=== PATIENT | female | born 1970 | race Caucasian/White ===

== ENCOUNTER → 2021-04-24 15:31 | Outpatient (CLI) | payer MEDICAID, SELFPAY ==
[2021-04-24 18:20] LABS: Basophils # 0.1 K/mm3 (0-0.2); Basophils % 1.4 % (0.1-2.0); Eosinophils # 0.1 K/mm3 (0.0-0.4); Eosinophils % 0.9 % (0.1-12.0); Hematocrit 44.8 % (37.0-47.0); Hemoglobin 14.8 g/dL (12.2-16.2); Lymphocytes # 2.9 K/mm3 (0.7-4.5); Lymphocytes % 30.9 % (10-50); Mean Corpuscular HGB Conc 32.9 g/dL (31.8-35.4); Mean Corpuscular Hemoglobin 27.6 pg (27.0-31.2); Mean Corpuscular Volume 83.7 fl (81-99); Mean Platelet Volume 9.4 fl (7.4-10.4); Monocytes # 0.3 K/mm3 (0.1-1.0); Monocytes % 3.3 % (1.7-9.3); Neutrophils # 5.9 K/mm3 (1.8-7.8); Neutrophils % 63.5 % (37.0-80.0); Platelet Count 270 K/mm3 (142-424); Red Blood Count 5.36 M/mm3 (4.20-5.40); Red Cell Distribution Width 16.4 % (11.5-17.5); White Blood Count 9.3 K/mm3 (4.8-10.8)
[2021-04-24 18:57] LABS: Alanine Aminotransferase 21 U/L (12-78); Albumin Level 4.7 g/dl (3.5-5.0); Albumin/Globulin Ratio 1.5 (1.1-1.8); Alkaline Phosphatase 148 U/L (38-126); Anion Gap 15.2 mEq/L (5-15); Aspartate Amino Transferase 25 U/L (14-36); Bilirubin,Total 0.4 mg/dl (0.2-1.3); Blood Urea Nitrogen 15 mg/dl (7-17); Calcium 9.4 mg/dl (8.4-10.2); Carbon Dioxide 25 mmol/L (22.0-30.0); Chloride 101 mmol/L (98-107); Chol/HDL Ratio 6.5 (1-3.5); Cholesterol 258 mg/dl (140-200); Estimated Glomerular Filt Rate 89 ml/min (>60); GFR (African American) 108 ML/MIN (>60); Globulin 3.1 g/dL (1.3-3.2); Glucose 94 mg/dl (74-100); HDL Cholesterol 40 mg/dl (40-60); Potassium 4.2 mmoL/L (3.5-5.1); Sodium 137 mmol/L (136-145); Total Protein,Serum 7.8 g/dl (6.3-8.2); Triglycerides 359 mg/dl (30-150); VLDL Cholesterol 72 mg/dL (0-40)
[2021-04-24 19:08] LABS: Direct LDL Cholesterol 140.99 mg/dL (100-129)
[2021-04-24 19:13] LABS: Free T4 (Free Thyroxine) 0.84 ng/dl (0.78-2.19)
[2021-04-26 08:15] LABS: HIV Screen 4th Generation wRfx Non Reactive (Non Reactive); Hep A Ab, IgM Negative (Negative); Hep A Ab, Total Negative (Negative); Hep B Core Ab, Total Negative (Negative); Hep B Surface Ab, Qual Non Reactive (.); Hepatitis B Surface Antigen Negative (Negative); Hepatitis C Antibody <0.1 s/co ratio (0.0-0.9)
[2021-05-01 00:10] LABS: ALT (SGPT) P5P 16 IU/L (0-40); Alpha 2-Macroglobulins, Qn 191 mg/dL (110-276); Apolipoprotein A-1 127 mg/dL (116-209); Bilirubin, Total <0.1 mg/dL (0.0-1.2); Fibrosis Score 0.05 (0.00-0.21); GGT 35 IU/L (0-60); Haptoglobin 245 mg/dL (42-296); Necroinflammat Activity Grade A0-No activity (.); Necroinflammat Activity Score 0.04 (0.00-0.17)
== END ==
PROVIDERS: Visit Provider Emergency Medicine
DX: I10 Essential (primary) hypertension (principal); K21.9 Gastro-esophageal reflux disease without esophagitis; E55.9 Vitamin D deficiency, unspecified; F41.9 Anxiety disorder, unspecified; F32.A Depression, unspecified; E66.9 Obesity, unspecified; Z68.33 Body mass index [BMI] 33.0-33.9, adult; Z11.4 Encounter for screening for human immunodeficiency virus [HIV]; R94.5 Abnormal results of liver function studies
CPT/HCPCS: 80053; 80061; 81596; 82306; 84439; 84443; 85025; 86703; 86704; 86706; 86708; 87340; 87380; 87522; G0432

== ENCOUNTER → 2021-05-29 09:31 | Outpatient (CLI) | payer MEDICAID, SELFPAY | PROVIDERS: PCP Emergency Medicine; Visit Provider Nurse Practitioner Family | DX: M25.562 Pain in left knee (principal) ==

== ENCOUNTER → 2021-06-06 10:30 | Outpatient (CLI) | payer MEDICAID, SELFPAY ==
--- NOTE | 2021-06-06 10:33 | XR_ITS ---
FINAL REPORT CLINICAL HISTORY: knee pain, knot on lateral side of knee FINDINGS: LEFT KNEE Four views were obtained. There is no acute fracture or dislocation. There is mild narrowing of the medial compartment joint space. The bones are well mineralized. There is soft tissue prominence anterior to the patella. IMPRESSION: No acute process. Reviewed, Interpreted and Dictated by Charlie Tolbert MD Transcribed by Kerrie Skaggs Authenticated by Charlie Tolbert MD on 06/06/2021 12:02:02 PM [facility]
== END ==
PROVIDERS: PCP Emergency Medicine; Visit Provider Orthopaedic Surgery
DX: M25.562 Pain in left knee (principal)
CPT/HCPCS: 73564

== ENCOUNTER → 2021-11-11 16:00 | Outpatient (CLI) | payer MEDICAID, SELFPAY ==
[2021-11-11 16:17] LABS: Basophils # 0.2 K/mm3 (0-0.2); Basophils % 1.6 % (0.1-2.0); Eosinophils # 0.3 K/mm3 (0.0-0.4); Eosinophils % 2.6 % (0.1-12.0); Hemoglobin 15.1 g/dL (12.2-16.2); Lymphocytes # 4.3 K/mm3 (0.7-4.5); Lymphocytes % 38.1 % (10-50); Mean Corpuscular HGB Conc 32.7 g/dL (31.8-35.4); Mean Corpuscular Hemoglobin 28.6 pg (27.0-31.2); Mean Corpuscular Volume 87.3 fl (81-99); Monocytes # 0.5 K/mm3 (0.1-1.0); Monocytes % 4.4 % (1.7-9.3); Neutrophils % 53.4 % (37.0-80.0); Platelet Count 259 K/mm3 (142-424); Red Blood Count 5.27 M/mm3 (4.20-5.40); White Blood Count 11.3 K/mm3 (4.8-10.8)
[2021-11-11 16:55] LABS: Chloride 103 mmol/L (98-107); Potassium 4.3 mmoL/L (3.5-5.1); Sodium 142 mmol/L (136-145)
[2021-11-11 17:03] LABS: Free T4 (Free Thyroxine) 1.01 ng/dl (0.78-2.19)
[2021-11-11 17:16] LABS: Thyroid Stimulating Hormone 2.53 uIU/mL (0.465-4.68)
[2021-11-11 17:38] LABS: Alanine Aminotransferase 26 U/L (12-78); Albumin Level 4.8 g/dl (3.5-5.0); Albumin/Globulin Ratio 1.5 (1.1-1.8); Alkaline Phosphatase 142 U/L (38-126); Anion Gap 18.3 mEq/L (5-15); Aspartate Amino Transferase 36 U/L (14-36); Blood Urea Nitrogen 17 mg/dl (7-17); Carbon Dioxide 25 mmol/L (22.0-30.0); Estimated Glomerular Filt Rate 89 ml/min (>60); GFR (African American) 107 ML/MIN (>60); Globulin 3.1 g/dL (1.3-3.2); Total Protein,Serum 7.9 g/dl (6.3-8.2)
[2021-11-11 17:39] LABS: Calcium 9.6 mg/dl (8.4-10.2); Glucose 97 mg/dl (74-100)
[2021-11-11 17:41] LABS: Bilirubin,Total 0.1 mg/dl (0.2-1.3)
== END ==
PROVIDERS: PCP Emergency Medicine; Visit Provider Emergency Medicine
DX: E66.9 Obesity, unspecified (principal); Z79.899 Other long term (current) drug therapy
CPT/HCPCS: 80053; 84439; 84443; 85025

== ENCOUNTER → 2021-11-20 10:56 | Outpatient (CLI) | payer MEDICAID, SELFPAY ==
--- NOTE | 2021-11-20 10:57 | CA_ITS ---
FINAL REPORT TECHNIQUE: Grayscale, color Doppler and duplex Doppler ultrasound of the kidneys, aorta and renal arteries was performed. Multiple velocities were measured. CLINICAL HISTORY: HTN,SMOKER FINDINGS: Aorta velocity: 121.1 cm/sec Right kidney: 9.1 cm. No evidence of hydronephrosis or mass. Right intrarenal RI: 0.56 Right renal artery velocity: 277 cm/sec. Right RAR (Renal artery-Aortic Ratio): 2.3 Left Kidney: 9.8 cm. No evidence of hydronephrosis or mass. Left intrarenal RI: 0.50 Left renal artery velocity: 283 cm/sec. Left RAR (Renal Artery-Aortic Ratio): 2.3 Incidental note is made of gallstones within the gallbladder. IMPRESSION: Less than 60% bilateral renal artery stenosis. Recommend CTA or catheter angiogram for further evaluation. Reviewed, Interpreted and Dictated by Elijah Schneider III, MD Transcribed by Whitney Paniagua Authenticated and [facility]
== END ==
PROVIDERS: PCP Emergency Medicine; Visit Provider Emergency Medicine
DX: I10 Essential (primary) hypertension (principal)
CPT/HCPCS: 93976

== ENCOUNTER → 2022-08-11 23:36 | Outpatient (CLI) | payer MEDICAID, SELFPAY ==
[2022-08-11 19:04] LABS: Barbiturates Screen,Urine Negative ng/ml (<200)
[2022-08-11 19:05] LABS: Benzodiazepines Screen,Urine Negative ng/ml (<200)
[2022-08-11 19:06] LABS: Cannabinoid Screen,Urine Negative ng/ml (<50)
[2022-08-11 19:07] LABS: Cocaine Screen,Urine Negative ng/ml (<300); Methadone Screen,Urine Negative ng/ml (<300)
[2022-08-11 19:08] LABS: Opiate Screen,Urine Positive ng/ml (<300)
[2022-08-11 19:09] LABS: Phencyclidine Screen,Urine Negative ng/ml (<25)
[2022-08-11 19:35] LABS: Amphetamine/Metha Screen,Urine Positive ng/ml (<1000)
== END ==
PROVIDERS: PCP Emergency Medicine; Visit Provider Emergency Medicine
DX: Z79.899 Other long term (current) drug therapy (principal)
CPT/HCPCS: 80305